=== PATIENT | female | born 1990 | race Caucasian/White ===

== ENCOUNTER 2016-10-07 23:56 | Emergency (ER) | payer SELFPAY ==
[~2016-10-07] VITALS: Ht 154.9 cm; Wt 63.2 kg
[2016-10-08 00:03] VITALS: Ht 154.9 cm; Wt 63.2 kg
[2016-10-08] MEDS ORDERED: KETOROLAC TROMETHAMINE 30 MG/ML VIAL IV STA (00:30)
--- NOTE | 2016-10-08 00:40 | EMERGENCY ROOM VISIT NOTE ---
History Report prepared by Madhuri: Francisco Javier Bateman Under the Supervision of: Dr. Nasrin Singleton D.O. First contact with patient: 00:14 Chief Complaint: ILLNESS Stated Complaint: HEADACHE,FEVER,SORETHROAT History of Present Illness The patient is a 26 year old female who presents to the Emergency Room with complaints of persistent upper respiratory symptoms since yesterday. The patient has had fevers, headache, sore throat, and coughing. The cough produces mucous. The patient had two Tylenol at 2130 tonight without relief of her symptoms. She denies abdominal pain. She was not vaccinated for influenza this year. The patient does not have any sick contacts. She denies any major health problems. LNMP was three days ago. She does not smoke. She follows up with Dr. Wong. Source of History: patient Onset: yesterday Position: other (upper respiratory) Quality: other (URI symptoms) Timing: other (persistent) Associated Symptoms: + cough, + fevers, + headache, + sorethroat, No abdominal pain Review of Systems See HPI for pertinent positives & negatives. A total of 10 systems reviewed and were otherwise negative. Past Medical & Surgical Medical Problems: (1) No known health problems Family History No pertinent family history Social History Smoking Status: Never Smoker Housing Status: lives with family Occupation Status: employed Current/Historical Medications Scheduled Oseltamivir (Tamiflu), 75 MG PO BID Allergies Coded Allergies: No Known Allergies (Unverified , 10/08/16) Physical Exam Vital Signs Date Time Temp Pulse Resp B/P Pulse Ox O2 Delivery O2 Flow Rate FiO2 10/08/16 02:30 36.9 78 20 93/63 97 10/08/16 01:53 37.3 84 18 99/53 96 Room Air 10/08/16 00:03 39.3 108 18 104/73 96 Room Air Physical Exam HEENT: Head - normocephalic and atraumatic Pupils are equal, round, and reactive to light. Extraocular eye muscles are intact, and sclera are anicteric. Nose - moist nasal mucosa without discharge. Mouth - moist buccal mucosa. Oropharynx is nonerythematous and there is no tonsillar exudate or edema noted. Neck: Supple; no JVD, nuchal rigidity, cervical lymphadenopathy. Heart: Tachycardic regular rhythm. There is a normal S1 and S2 with no murmurs , clicks, or gallops appreciated. Lungs: Rhonchi right lung base. Abdomen: Soft, completely nontender, nondistended, with good bowel sounds. There are no palpable pulsatile masses or hepatosplenomegaly. There is no guarding, rigidity, or rebound noted. Extremities: No evidence of cyanosis, clubbing, or edema. There are easily palpable peripheral pulses. Skin: warm with good turgor and no rashes. Diaphoretic. Medical Decision & Procedures ER Provider Diagnostic Interpretation: X-ray results as stated below per interpretation by me. CHEST TWO VIEWS: Severe scoliosis. No pulmonary pathology. Laboratory Results 10/08/16 00:51 Red Blood Count 4.10, Mean Corpuscular Volume 90.5, Mean Corpuscular Hemoglobin 31.7, Mean Corpuscular Hemoglobin Concent 35.0, Mean Platelet Volume 9.7, Neutrophils (%) (Auto) 74.6, Lymphocytes (%) (Auto) 14.1, Monocytes (%) (Auto) 10.9, Eosinophils (%) (Auto) 0.0, Basophils (%) (Auto) 0.2, Neutrophils # (Auto ) 3.96, Lymphocytes # (Auto) 0.75, Monocytes # (Auto) 0.58, Eosinophils # (Auto ) 0.00, Basophils # (Auto) 0.01 10/08/16 00:51 Test 10/08/16 00:51 10/08/16 01:05 White Blood Count 5.31 K/uL (4.8-10.8) Red Blood Count 4.10 M/uL (4.2-5.4) Hemoglobin 13.0 g/dL (12.0-16.0) Hematocrit 37.1 % (37-47) Mean Corpuscular Volume 90.5 fL (80-100) Mean Corpuscular Hemoglobin 31.7 pg (25-34) Mean Corpuscular Hemoglobin Concent 35.0 g/dl (32-36) Platelet Count 166 K/uL (130-400) Mean Platelet Volume 9.7 fL (7.4-10.4) Neutrophils (%) (Auto) 74.6 % Lymphocytes (%) (Auto) 14.1 % Monocytes (%) (Auto) 10.9 % Eosinophils (%) (Auto) 0.0 % Basophils (%) (Auto) 0.2 % Neutrophils # (Auto) 3.96 K/uL (1.4-6.5) Lymphocytes # (Auto) 0.75 K/uL (1.2-3.4) Monocytes # (Auto) 0.58 K/uL (0.11-0.59) Eosinophils # (Auto) 0.00 K/uL (0-0.5) Basophils # (Auto) 0.01 K/uL (0-0.2) RDW Standard Deviation 44.2 fL (36.4-46.3) RDW Coefficient of Variation 13.3 % (11.5-14.5) Immature Granulocyte % (Auto) 0.2 % Immature Granulocyte # (Auto) 0.01 K/uL (0.00-0.02) Anion Gap 7.0 mmol/L (3-11) Est Creatinine Clear Calc Drug Dose 77.1 ml/min Estimated GFR () 96.5 Estimated GFR (Non- 83.2 BUN/Creatinine Ratio 22.1 (10-20) Calcium Level 8.0 mg/dl (8.5-10.1) Monoscreen NEG (NEG) Influenza Type A Antigen Neg for Influ A (NEG) Influenza Type B Antigen POS for Influ B (NEG) Laboratory results per my review. Medications Administered Medications (Trade) Dose Ordered Sig/Yi Route Start Time Stop Time Status Last Admin Dose Admin Ketorolac Tromethamine 30 mg 30 mg NOW STAT IV 10/08/16 00:30 10/08/16 00:32 DC 10/08/16 01:06 30 MG Sodium Chloride (Nss 1000ml) 1,000 ml @ 999 mls/hr Q1H1M STAT IV 10/08/16 01:36 10/08/16 02:36 DC 10/08/16 01:53 999 MLS/HR Oseltamivir Phosphate (Tamiflu Cap) 75 mg NOW STAT PO 10/08/16 02:13 10/08/16 02:14 DC 10/08/16 02:26 75 MG Procedure Medications administered include Toradol IV, NSS IV, Tamiflu PO. ED Course 0025: Past medical records reviewed. The patient was evaluated in room A9b. A complete history and physical exam was performed. An IV lock was initiated and labs are drones above. Her throat was swabbed for the strep and was negative. Her nose was swab for influenza and was positive for influenza B. 0030: Toradol 30 mg IV. 0136: NSS 1000 ml @ 999 mls/hr. 0205: Updated the patient. Discussed the discharge instructions with her. She verbalized understanding and agreement. The patient is ready for discharge. 0213: Tamiflu 75 mg PO. Medical Decision The patient is a 26 year old fmale who presents to the ED with upper respiratory symptoms. Differential diagnosis includes influenza, strep, mono, pharyngitis, viral illness, pneumonia. Laboratory interpretation: [place] negative, influenza B positive, BUN 21, creatinine 0.9, glucose 134, no leukocytosis, stable H&H. This is a 26-year-old female patient who presents emergency Department upper respiration symptoms, fever, headache and body aches. The patient had not received the flu vaccine issue. Testing revealed influenza B-positive. The patient was told to quarantine herself. She will take Tamiflu for the next 5 days. Impression Primary Impression: Influenza B Scribe Attestation The scribe's documentation has been prepared under my direction and personally reviewed by me in its entirety. I confirm that the note above accurately reflects all work, treatment, procedures, and medical decision making performed by me. Departure Information Dispostion Home / Self-Care Prescriptions Oseltamivir (Tamiflu) 75 Mg Cap 75 MG PO BID, #10 CAP Prov: Nasrin Singleton D.O. 10/08/16 Referrals No Doctor, Assigned (PCP) Forms HOME CARE DOCUMENTATION FORM, IMPORTANT VISIT INFORMATION, WORK / SCHOOL INSTRUCTIONS Patient Instructions ED Flu, My [facility] Additional Instructions Rest. Take Tamiflu - every 12 hours. Take plenty of clear liquids Motrin - 600mg every 6 hours with food for pain Do not leave your house for 48 hours
[2016-10-08 01:03] LABS: HEMATOCRIT 37.1 % (37-47); MEAN CELL VOLUME 90.5 fL (80-100); MEAN CORPUSCULAR HEMOGLOBIN 31.7 pg (25-34); MEAN PLATELET VOLUME 9.7 fL (7.4-10.4); PLATELET COUNT 166 K/uL (130-400); WHITE BLOOD COUNT 5.31 K/uL (4.8-10.8)
[2016-10-08 01:25] LABS: BASO % 0.2 %; BASO ABS # 0.01 K/uL (0-0.2); COMPLETE YES; IG% 0.2 %; LYMPH % 14.1 %; LYMPH ABS # 0.75 K/uL (1.2-3.4); MONO % 10.9 %; NEUT % 74.6 %
[2016-10-08 01:29] LABS: POTASSIUM 3.7 mmol/L (3.5-5.1)
[2016-10-08 01:34] LABS: BUN/CREATININE RATIO 22.1 (10-20); CREATININE 0.95 mg/dl (0.60-1.20)
[2016-10-08] MEDS ORDERED: SODIUM CHLORIDE 0.9% 1000ML 1,000 ML IV STA (01:36)
[2016-10-08] MEDS ORDERED: OSELTAMIVIR PHOSPHATE 75 MG CAP PO STA (02:13)
[2016-10-08] MEDS ORDERED: OSEL75CA12 PO (02:15)
[2016-10-08 02:30] VITALS: BP 93/63; PULSE 78; TEMP 36.9; O2SAT 97
--- NOTE | 2016-10-08 06:17 | DIAGNOSTIC IMAGING REPORT ---
CHEST 2 VIEWS ROUTINE CLINICAL HISTORY: Fever and cough COMPARISON STUDY: No previous studies for comparison. FINDINGS: The heart is normal in size. There is no failure. There is no focal pulmonary consolidation. There is minimal blunting of the left posterior costophrenic angle. A trace pleural effusion cannot be excluded.[ There is a thoracolumbar scoliosis. IMPRESSION: Equivocal trace left pleural effusion. No evidence of focal pulmonary consolidation. Electronically signed by: Suleiman Abbott M.D. 10/08/2016 6:15 AM Dictated Date/Time: 10/08/2016 6:14 AM
== END 2016-10-08 02:30 | disposition home or self-care (01) ==
LOC: C.EDB 23:57 → C.EDA 10-08 02:30
DX: J11.1 Influenza due to unidentified influenza virus with other respiratory manifestations (principal)

== ENCOUNTER 2023-02-17 07:45 | Inpatient (IN) ==
[2023-02-17] MEDS ORDERED: OXYTOCIN 30 UNITS/500 ML BAG IV PRN (08:28)
[2023-02-17] MEDS ORDERED: LIDOCAINE 1% LOCAL 20 ML VIAL INFIL PRN (08:28)
[2023-02-17] MEDS ORDERED: PENICILLIN G POTASSIUM 6 MU in DEXTROSE 5% 250 ML IV STA (08:37)
--- NOTE | 2023-02-17 08:51 | History & Physical Report ---
Date of Service February 17, 2023 Assessment & Plan (1) 40 weeks gestation of : Plan: Admit, routine labs Discussed plan for induction of labor Misoprostol 25 mcg grams sublingually every 4 hours Epidural if patient request Anticipate spontaneous vaginal delivery (2) Positive GBS test: Plan: Start IV penicillin G when in active labor, or prior to AROM or if patient has SROM (3) Elevated BP without diagnosis of hypertension: Plan: Patient had 2 diastolic blood pressures of 90 or higher, no severe range blood pressures PIH labs ordered If patient has elevated blood pressures 4 hours apart will at least meet the criteria for gestational hypertension Admission and Anticipated Discharge Date Admission Date: February 17, 2023 History of Present Illness Chief Complaint: IOL for post dates Primary Care Provider: NO PCP Patient is a pleasant 32-year-old G1, P0 at 40 weeks and 5 days is joined in the room with father the baby and [id number]. She denies contractions, leaking of fluid or vaginal bleeding. Notes good movement. Denies currently having a headache but has had headaches in , denies blurry vision, right upper quadrant epigastric pain. Otherwise feeling well has been complicated by GBS positive, and scoliosis Allergies Allergy/AdvReac Type Severity Reaction Status Date / Time No Known Allergies Allergy Unverified 02/17/23 08:08 Home Medications Medication Instructions Recorded Confirmed Type vits no.124-ferrous fum 1 tab PO DAILY 02/17/23 02/17/23 History 27 mg iron-folic acid 800 mcg tablet ( Vitamin) Patient History Medical History HPV (human papilloma virus) infection ASCUS Scoliosis Surgical History [place] teeth extracted Family History Other Hypertension Social History Smoking Status: Never smoker Hx Alcohol Use: No Hx Substance Use: No Preferred Language: Cook Islander Communication Ability: Effective Director 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 Quality Required: No Beliefs That Will Affect Care: None marital status: marital status details: Katie Deshpande (TJ) Current Living Situation: Spouse 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 Other Information That Helps Us Care for You: No Feels Safe at Home: Yes Safety Concerns: Feels Safe At This Time Diet: regular Assistive Devices: None OB History Primigravida POCKETED [employer] History See record History of HPV Review of Systems All systems reviewed & are unremarkable except as noted in HPI & below Physical Exam Constitutional: WD/WN, vitals as above Respiratory: normal respiratory effort, lungs clear to auscultation Cardiovascular: RRR, no murmur, no edema Gastrointestinal (Abdomen): normal bowel sounds, soft, nontender, no hepatosplenomegaly Arturo's: 3500 g, cephalic Genitourinary: External genitalia: Normal Vagina: Normal Cervical exam: 0/0/-3 Results & Data Vital Signs (Past 12 Hours) Vital Signs Temp Pulse Resp BP 02/17/23 08:09 37.0 C 18 02/17/23 08:33 77 124/87 02/17/23 08:19 85 129/90 02/17/23 08:03 74 131/94 Monitoring External Monitor heart tracing: Baseline 130, moderate variability, positive accelerations no decelerations, category 1 tracing Tocodynamometer Tocometer: Irritability
[2023-02-17 09:12] LABS: Hematocrit (blood only) 33.8 % (37.0-47.0); Hemoglobin 11.9 g/dl (12.0-16.0); Mean Corpuscular Hgb Conc 35.2 g/dL (32.0-36.0); Mean Corpuscular Volume 90.9 fL (80.0-100.0); Mean Platelet Volume 11.3 fL (9.4-12.4); Platelet Count 156 K/uL (130-400); RDW Coefficient of Variation 12.8 % (11.5-14.5); RDW Standard Deviation 42.1 fL (36.4-46.3); Red Blood Count 3.72 M/uL (4.20-5.40); White Blood Count 9.92 K/ul (4.8-10.8)
[2023-02-17 09:15] LABS: Albumin Globulin Ratio 1.2 (0.9-2); Albumin Level 3.2 gm/dl (3.4-5.0); BUN Creatinine Ratio 30.6 (10-20); Bilirubin,Total 0.3 mg/dl (0.2-1.0); Calcium 8.3 mg/dl (8.6-10.3); Est GFR (African American) 139.3 ml/min; Est GFR (Non-African American) 120.2 ml/min; Globulin 2.7 gm/dl (2.5-4.0); Total Protein 5.9 gm/dl (6.0-8.3)
[2023-02-17] MEDS: miSOPROStoL 25 MCG TAB SL SCH ×4 (09:21→19:26)
[2023-02-17 09:53] LABS: Creatinine Urine Random 47.9 mg/dl; Protein Creatinine Ratio Urine 0.1 (0-0.2); Total Protein Urine Random 6.6 mg/dl (0-11.9)
--- NOTE | 2023-02-17 15:29 | Obstetrical Progress Note ---
Date of Service February 17, 2023 Assessment & Plan (1) Gestational hypertension affecting first : Admission and Anticipated Discharge Date Admission Date: February 17, 2023 Subjective Patient has had multiple elevated blood pressures, at least 4 hours apart meeting the criteria for gestational hypertension at term Protein creatinine ratio 0.1. Results & Data Vital Signs (Past 12 Hours) Vital Signs Temp Pulse Resp BP 02/17/23 08:09 37.0 C 18 02/17/23 14:33 36.4 C L 64 18 134/93 02/17/23 11:30 20 02/17/23 11:30 36.7 C 20 02/17/23 11:31 57 L 150/89 H 02/17/23 08:33 77 18 124/87 02/17/23 08:19 85 18 129/90 02/17/23 08:03 74 131/94 Laboratory Results Laboratory Results WBC 9.92 K/ul (4.8-10.8) 02/17/23 08:35 RBC 3.72 M/uL (4.20-5.40) L 02/17/23 08:35 Hgb 11.9 g/dl (12.0-16.0) L 02/17/23 08:35 Hct 33.8 % (37.0-47.0) L 02/17/23 08:35 MCV 90.9 fL (80.0-100.0) 02/17/23 08:35 MCH 32.0 pg (25.0-34.0) 02/17/23 08:35 MCHC 35.2 g/dL (32.0-36.0) 02/17/23 08:35 RDW Std Deviation 42.1 fL (36.4-46.3) 02/17/23 08:35 RDW Coeff of [place] 12.8 % (11.5-14.5) 02/17/23 08:35 Plt Count 156 K/uL (130-400) 02/17/23 08:35 MPV 11.3 fL (9.4-12.4) 02/17/23 08:35 Sodium 135 mmol/L (136-145) L 02/17/23 08:35 Potassium 4.0 mmol/L (3.5-5.1) 02/17/23 08:35 Chloride 108 mmol/L (98-107) H 02/17/23 08:35 Carbon Dioxide 21 mmol/L (21-32) 02/17/23 08:35 Anion Gap 6 (3-11) 02/17/23 08:35 BUN 19 mg/dl (6-23) 02/17/23 08:35 Creatinine 0.62 mg/dl (0.6-1.2) 02/17/23 08:35 Est Cr Clr Drug Dosing 119.0 ml/min 02/17/23 08:35 Est GFR ( Amer) 139.3 ml/min 02/17/23 08:35 Est GFR (Non-Af Amer) 120.2 ml/min 02/17/23 08:35 BUN/Creatinine Ratio 30.6 (10-20) H 02/17/23 08:35 Glucose 77 mg/dl (70-99(Fasting)) 02/17/23 08:35 Calcium 8.3 mg/dl (8.6-10.3) L 02/17/23 08:35 Total Bilirubin 0.3 mg/dl (0.2-1.0) 02/17/23 08:35 AST 18 U/L (13-39) 02/17/23 08:35 ALT 15 U/L (7-52) 02/17/23 08:35 Alkaline Phosphatase 144 U/L (34-104) H 02/17/23 08:35 Total Protein 5.9 gm/dl (6.0-8.3) L 02/17/23 08:35 Albumin 3.2 gm/dl (3.4-5.0) L 02/17/23 08:35 Globulin 2.7 gm/dl (2.5-4.0) 02/17/23 08:35 Albumin/Globulin Ratio 1.2 (0.9-2) 02/17/23 08:35 Ur Random Creatinine 47.9 mg/dl 02/17/23 08:44 U Random Total Protein 6.6 mg/dl (0-11.9) 02/17/23 08:44 Protein/Creatinin Ratio 0.1 (0-0.2) 02/17/23 08:44
[2023-02-17] MEDS: PRENATAL VITAMIN 1 TAB PO SCH (16:54)
--- NOTE | 2023-02-17 18:26 | Obstetrical Progress Note ---
Date of Service February 17, 2023 Assessment & Plan (1) 40 weeks gestation of : Plan: Patient is status post 1 dose of misoprostol 25 mcg sublingual, has been akila too much throughout the day to give a second dose Plan to give a second dose when contractions spaced out Epidural if patient request Anticipate spontaneous vaginal delivery (2) Positive GBS test: Plan: Plan to start IV penicillin G when in active labor (3) Gestational hypertension affecting first : Plan: PIH labs within normal limits, no severe range blood pressures Admission and Anticipated Discharge Date Admission Date: February 17, 2023 Subjective Patient has been up walking, contractions are more painful than earlier No other complaints at this time Physical Exam Genitourinary: heart tracing: Has been category 1 throughout the day Tocometer: Contractions every 2 to 4 minutes Cervix: 0/60/-3 Results & Data Vital Signs (Past 12 Hours) Vital Signs Temp Pulse Resp BP 02/17/23 08:09 37.0 C 18 02/17/23 14:33 36.4 C L 64 18 134/93 02/17/23 11:30 20 02/17/23 11:30 36.7 C 20 02/17/23 11:31 57 L 150/89 H 02/17/23 08:33 77 18 124/87 02/17/23 08:19 85 18 129/90 02/17/23 08:03 74 131/94 Laboratory Results Laboratory Results WBC 9.92 K/ul (4.8-10.8) 02/17/23 08:35 RBC 3.72 M/uL (4.20-5.40) L 02/17/23 08:35 Hgb 11.9 g/dl (12.0-16.0) L 02/17/23 08:35 Hct 33.8 % (37.0-47.0) L 02/17/23 08:35 MCV 90.9 fL (80.0-100.0) 02/17/23 08:35 MCH 32.0 pg (25.0-34.0) 02/17/23 08:35 MCHC 35.2 g/dL (32.0-36.0) 02/17/23 08:35 RDW Std Deviation 42.1 fL (36.4-46.3) 02/17/23 08:35 RDW Coeff of [place] 12.8 % (11.5-14.5) 02/17/23 08:35 Plt Count 156 K/uL (130-400) 02/17/23 08:35 MPV 11.3 fL (9.4-12.4) 02/17/23 08:35 Sodium 135 mmol/L (136-145) L 02/17/23 08:35 Potassium 4.0 mmol/L (3.5-5.1) 02/17/23 08:35 Chloride 108 mmol/L (98-107) H 02/17/23 08:35 Carbon Dioxide 21 mmol/L (21-32) 02/17/23 08:35 Anion Gap 6 (3-11) 02/17/23 08:35 BUN 19 mg/dl (6-23) 02/17/23 08:35 Creatinine 0.62 mg/dl (0.6-1.2) 02/17/23 08:35 Est Cr Clr Drug Dosing 119.0 ml/min 02/17/23 08:35 Est GFR ( Amer) 139.3 ml/min 02/17/23 08:35 Est GFR (Non-Af Amer) 120.2 ml/min 02/17/23 08:35 BUN/Creatinine Ratio 30.6 (10-20) H 02/17/23 08:35 Glucose 77 mg/dl (70-99(Fasting)) 02/17/23 08:35 Calcium 8.3 mg/dl (8.6-10.3) L 02/17/23 08:35 Total Bilirubin 0.3 mg/dl (0.2-1.0) 02/17/23 08:35 AST 18 U/L (13-39) 02/17/23 08:35 ALT 15 U/L (7-52) 02/17/23 08:35 Alkaline Phosphatase 144 U/L (34-104) H 02/17/23 08:35 Total Protein 5.9 gm/dl (6.0-8.3) L 02/17/23 08:35 Albumin 3.2 gm/dl (3.4-5.0) L 02/17/23 08:35 Globulin 2.7 gm/dl (2.5-4.0) 02/17/23 08:35 Albumin/Globulin Ratio 1.2 (0.9-2) 02/17/23 08:35 Ur Random Creatinine 47.9 mg/dl 02/17/23 08:44 U Random Total Protein 6.6 mg/dl (0-11.9) 02/17/23 08:44 Protein/Creatinin Ratio 0.1 (0-0.2) 02/17/23 08:44
[2023-02-18] MEDS: miSOPROStoL 25 MCG TAB SL SCH ×5 (00:52→14:11)
[2023-02-18] MEDS ORDERED: ACETAMINOPHEN 325 MG TAB PO ONE (05:11)
--- NOTE | 2023-02-18 06:34 | Obstetrical Progress Note ---
Date of Service February 18, 2023 Assessment & Plan (1) 40 weeks gestation of : Plan: Patient is status post 4 doses of sublingual misoprostol IV Stadol now Plan to start IV Pitocin Epidural if patient request Anticipate spontaneous vaginal delivery (2) Positive GBS test: Plan: Plan to start IV penicillin G (3) Gestational hypertension affecting first : Plan: PIH labs within normal limits, no severe range blood pressures Admission and Anticipated Discharge Date Admission Date: February 17, 2023 Subjective Contractions are more painful, patient is starting to 3 through them. Would l lisbeth IV pain medication Has had some leaking of fluid Physical Exam Genitourinary: heart tracing: Baseline 140, moderate variability, positive accelerations, no decelerations, category 1 tracing Tocometer: Contractions every 1 to 6 minutes Cervix: 2/80/-2, noted no membranes, appears grossly ruptured Results & Data Vital Signs (Past 12 Hours) Vital Signs Temp Pulse Resp BP 02/17/23 19:03 36.6 C 18 02/18/23 03:09 36.7 C 57 L 18 131/86 02/18/23 00:30 36.6 C 56 L 18 138/88 02/17/23 19:06 62 135/86
[2023-02-18] MEDS ORDERED: BUTORPHANOL TARTRATE 1 MG/ML VIAL IV PRN (06:35)
[2023-02-18] MEDS: LACTATED RINGER'S 1,000 ML IV PRN ×2 (06:59→12:00)
[2023-02-18] MEDS ORDERED: OXYTOCIN 30 UNITS/500 ML BAG IV PRN ×2 (09:07→20:05)
[2023-02-18] MEDS: PRENATAL VITAMIN 1 TAB PO SCH (09:08)
[2023-02-18] MEDS ORDERED: fentaNYL citrate PF 100 MCG/2 ML VIAL ONE (09:58)
[2023-02-18] MEDS ORDERED: fentaNYL 2MCG/ML ROPIVACAINE 1.25MG/ML 100 ML BAG EPI ONE (09:59)
[2023-02-18] MEDS ORDERED: SODIUM CHLORIDE 0.9% PF INJ 10 ML VIAL ONE (09:59)
[2023-02-18] MEDS ORDERED: ePHEDrine sulfate 50 MG/ML AMP ONE (09:59)
[2023-02-18] MEDS ORDERED: BUPIVACAINE 0.25% PF 30 ML VIAL ONE (09:59)
[2023-02-18] MEDS ORDERED: LIDOCAINE 2%/EPINEPHRINE 1:200,000 20 ML PF ONE (09:59)
--- NOTE | 2023-02-18 10:02 | Anesthesiology Consultation ---
Date of Service February 18, 2023 Assessment & Plan ASA ASA2 Proposed Anesthesia Anesthesia Type: Labor Epidural Risk / Benefits Reviewed With: PT / POA / Parent / Guardian, Accepts Plan and Informed Consent Obtained History Height/Weight Height: 5 ft 1 in Weight: 71.668 kg Allergies Allergy/AdvReac Type Severity Reaction Status Date / Time No Known Allergies Allergy Unverified 02/17/23 09:25 Medications Home Medications Medication Instructions Recorded Confirmed Last Taken vits no.124-ferrous fum 1 tab PO DAILY 02/17/23 02/17/23 02/17/23 07:00 27 mg iron-folic acid 800 mcg tablet ( Vitamin) Active Medications Generic Name Dose Route Start Last Admin Trade Name Freq PRN Reason Stop Dose Admin Butorphanol Tartrate 1 mg 02/18/23 06:35 02/18/23 06:59 Butorphanol Tartrate 1 Mg/Ml Vial IV 03/20/23 06:34 1 mg Q2R PRN Administration Pain Lactated Ringer's 1,000 mls @ 125 mls/hr 02/17/23 08:28 02/18/23 06:59 Lr IV 02/19/23 08:27 125 mls/hr .Q8H PRN Administration L&D Protocol Protocol Oxytocin 30 units in 500 mls @ 2 mls/hr 02/18/23 09:07 02/18/23 09:23 Pitocin IV 02/20/23 09:06 0.12 units/hr .Q24H PRN 2 mls/hr Labor Induction/Augmentation Administration Protocol 0.12 UNITS/HR Misoprostol 25 mcg 02/17/23 09:00 02/18/23 09:08 Misoprostol 25 Mcg Tab SL 03/19/23 08:59 Not Given Q4H JJ Prenat Multivit/[place]/Iron/Folic Ac 1 tab 02/17/23 09:00 02/18/23 09:08 Vitamin 1 Tab PO 03/19/23 08:59 Not Given DAILY JJ Past Medical History Medical History Elevated BP without diagnosis of hypertension HPV (human papilloma virus) infection ASCUS Scoliosis Exercise / Class Metabolic Activity II 4-5 Yardwork/Stairs/Walk up hill Past Family History Family History Other Hypertension Past Surgical History Surgical History [place] teeth extracted Past Anesthesia History No Hx of Anesthesia Complications and No Family Hx of Anesthesia Complications History of PONV No Hx of PONV and No Hx of Motion Sickness Social History Smoking Status: Never smoker Hx Alcohol Use: No Hx Substance Use: No Review of Systems denies fever/cough/ colds/ chest pain/ SOB/ RYDER denies RYDER Physical Exam Vital Signs Last Vital Signs Temp 36.7 C 02/18/23 09:25 Pulse 80 02/18/23 10:34 Resp 18 02/18/23 09:25 BP 123/81 02/18/23 10:34 Pulse Ox 99 02/18/23 10:31 ENMT Mouth: no TMJ abnormality and no dentition abnormality Thyromental Distance: > or= 3.5 Finger Breadths Mallampati Class: II Neck neck extension not limited Respiratory normal respiratory effort; no respiratory distress Auscultation: lungs clear to auscultation bilaterally Cardiovascular Rate/Rhythm: regular rate and regular rhythm Neurologic moves all extremities Psychiatric Orientation: alert and oriented x 3 Testing Laboratory Results 02/17/23 08:35 02/17/23 08:35
[2023-02-18] MEDS ORDERED: SODIUM CHLORIDE 0.9% PF INJ 10 ML VIAL EPI PRN (10:03)
[2023-02-18] MEDS ORDERED: fentaNYL 2MCG/ML ROPIVACAINE 1.25MG/ML 100 ML BAG EPI PRN (10:03)
[2023-02-18] MEDS ORDERED: SODIUM CHLORIDE 0.9% PF INJ 10 ML VIAL EPI STA (10:03)
[2023-02-18] MEDS ORDERED: fentaNYL citrate PF 100 MCG/2 ML VIAL EPI STA (10:03)
[2023-02-18] MEDS ORDERED: LIDOCAINE 2% MPF LOCAL 5 ML VIAL EPI PRN (10:03)
[2023-02-18] MEDS ORDERED: ROPIVACAINE 0.5% PF 5 MG/ML 20 ML VIAL EPI PRN (10:03)
[2023-02-18] MEDS ORDERED: ONDANSETRON INJ 2 MG/ML 2 ML VIAL IV PRN (10:03)
[2023-02-18] MEDS ORDERED: BUPIVACAINE 0.25% PF 30 ML VIAL EPI PRN (10:03)
[2023-02-18] MEDS ORDERED: NALOXONE HCL 0.4 MG/1 ML VIAL/CARP IV PRN (10:03)
[2023-02-18] MEDS ORDERED: fentaNYL citrate PF 100 MCG/2 ML VIAL EPI PRN (10:03)
[2023-02-18] MEDS ORDERED: BUPIVACAINE 0.25% PF 30 ML VIAL EPI STA (10:03)
[2023-02-18] MEDS ORDERED: diphenhydrAMINE 50 MG/ML VIAL IV PRN (10:03)
[2023-02-18] MEDS ORDERED: ePHEDrine sulfate 50 MG/ML AMP IV PRN (10:03)
[2023-02-18] MEDS ORDERED: NALBUPHINE HCL INJ 10 MG/ML AMP IV PRN (10:03)
[2023-02-18] MEDS ORDERED: NALOXONE HCL 1 MG in SODIUM CHLORIDE 0.9% 1000ML 1,000 ML IV PRN (10:03)
[2023-02-18] MEDS ORDERED: LIDOCAINE 2%/EPINEPHRINE 1:200,000 20 ML PF EPI STA (10:03)
[2023-02-18] MEDS: PENICILLIN G POTASSIUM 3 MU in DEXTROSE 5% 100 ML IV PRN ×3 (11:17→19:30)
[2023-02-18] MEDS ORDERED: BENZOCAINE 20% SPRY 85 APPLN/85 GM CAN EXT PRN (20:05)
[2023-02-18] MEDS ORDERED: ACETAMINOPHEN 325 MG TAB PO PRN (20:05)
[2023-02-18] MEDS ORDERED: METHYLERGONOVINE MALEATE 0.2 MG/ML AMP IM ONE (20:05)
[2023-02-18] MEDS ORDERED: HYDROCORTISONE ACETATE 25 MG SUPP PR PRN (20:05)
[2023-02-18] MEDS ORDERED: bisacodyL 10 MG SUPP PR PRN (20:05)
[2023-02-18] MEDS ORDERED: DIPHTHERIA/TETANUS/PERTUSSIS Vaccine (Tdap, Age 7+yrs) 0.5mL SYR/VL IM ONE (20:05)
[2023-02-18 20:09] LABS: Base Excess Cord Arterial Bld -8.1 mEq/L (-9-1.8); CO2 Cord Arterial Blood 45 mmHg (39.1-73.5); HCO3 Cord Arterial Blood 19 mmol/L (19.7-28.5); Oxygen Sat Cord Arterial Blood < 60.0 % (<60); PO2 Cord Arterial Blood 22 mmHg (4.1-31.7); pH Cord Arterial Blood 7.24 (7.1-7.38)
--- NOTE | 2023-02-18 20:15 | Delivery Summary ---
Vaginal Delivery Summary Date of Service February 18, 2023 Vaginal Delivery Summary DELIVERY NOTE Patient delivered a live in left occiput anterior presentation. was delivered and placed on mother's abdomen. Delayed cord clamping was performed. Cord blood is obtained Cord gasses are obtained Meconium is absent Placenta is spontaneously delivered. Placenta appears grossly normal and has 3 vessel cord Inspection of the perineum showed a second-degree midline laceration. Laceration is repaired in layers with 2-0 Vicryl in layers Rectal exam post repair showed good sphincter tone no sutures palpated in the rectum. Estimated blood loss is 450 cc per Infants weight and scores are in the pediatric record Mother and baby are stable in in the recovery
--- NOTE | 2023-02-18 21:13 | Anesthesia Procedure Note ---
Date of Service February 18, 2023 Anesthesia Post Epidural Note Vital Signs Vital Signs: Temp Pulse Resp BP Pulse Ox 37.0 C 73 18 152/82 H 96 02/18/23 18:57 02/18/23 21:06 02/18/23 20:50 02/18/23 21:06 02/18/23 19:57 Pain Intensity Abdomen: Pain Intensity: 6 Notes Mental Status: alert / awake / arousable Nausea / Vomiting: adequately controlled Pain: adequately controlled Airway Patency, RR, SpO2: stable & adequate BP & HR: stable & adequate Hydration State: stable & adequate Neuraxial Anesthesia: was administered and sensory block is resolving Anesthetic Complications: no major complications apparent and Pt Satisfied with anesthetic care Epidural: Removed without complications and With tip intact
[2023-02-18] MEDS: IBUPROFEN 600 MG TAB PO PRN (23:37)
[2023-02-19] MEDS ORDERED: BENZOCAINE 20% SPRY 85 APPLN/85 GM CAN EXT ONE (00:57)
[2023-02-19] MEDS: IBUPROFEN 600 MG TAB PO PRN ×4 (03:51→17:32)
[2023-02-19] MEDS: DOCUSATE SODIUM 100 MG CAP PO SCH ×2 (07:29→20:32)
[2023-02-19] MEDS: PRENATAL VITAMIN 1 TAB PO SCH (07:29)
[2023-02-19] MEDS ORDERED: PRENATAL VITAMIN 1 TAB PO SCH (08:00)
[2023-02-19 08:15] LABS: Hematocrit (blood only) 31.1 % (37.0-47.0); Mean Corpuscular Hemoglobin 32.3 pg (25.0-34.0); Mean Corpuscular Hgb Conc 35.4 g/dL (32.0-36.0); Mean Corpuscular Volume 91.2 fL (80.0-100.0); Mean Platelet Volume 11.1 fL (9.4-12.4); Platelet Count 119 K/uL (130-400); RDW Coefficient of Variation 12.9 % (11.5-14.5); RDW Standard Deviation 42.3 fL (36.4-46.3); Red Blood Count 3.41 M/uL (4.20-5.40); White Blood Count 16.41 K/ul (4.8-10.8)
[2023-02-19 08:34] LABS: Albumin Level 2.6 gm/dl (3.4-5.0); BUN Creatinine Ratio 24.2 (10-20); Bilirubin,Total 0.4 mg/dl (0.2-1.0); Est GFR (African American) 139.3 ml/min; Est GFR (Non-African American) 120.2 ml/min; Globulin 2.5 gm/dl (2.5-4.0); Potassium 4.4 mmol/L (3.5-5.1); Total Protein 5.1 gm/dl (6.0-8.3)
--- NOTE | 2023-02-19 09:05 | Obstetrical Progress Note ---
Date of Service February 19, 2023 Assessment & Plan (1) Normal course: PPD #1 pt dong well continue day #1 care anticipate disch tomorrow Results & Data Vital Signs (Past 12 Hours) Vital Signs Temp Pulse Pulse Resp BP BP Pulse Ox 02/19/23 08:30 131/86 02/19/23 07:36 36.4 C L 59 L 16 151/91 H 100 02/19/23 03:40 36.7 C 68 16 118/78 97 02/18/23 23:20 36.8 C 81 16 129/89 96 02/18/23 22:05 37.1 C 20 02/18/23 21:35 20 02/18/23 21:05 18 02/18/23 22:20 92 H 142/83 H 02/18/23 22:06 89 150/83 H 02/18/23 21:51 76 137/83 02/18/23 21:36 86 147/73 H 02/18/23 21:20 71 154/87 H 02/18/23 21:06 73 152/82 H O2 Del Method 02/19/23 08:30 02/19/23 07:36 Room Air 02/19/23 03:40 Room Air 02/18/23 23:20 Room Air 02/18/23 22:05 02/18/23 21:35 02/18/23 21:05 02/18/23 22:20 02/18/23 22:06 02/18/23 21:51 02/18/23 21:36 02/18/23 21:20 02/18/23 21:06
[2023-02-19] MEDS ORDERED: bisacodyL 5 MG TABEC PO SCH (20:00)
[2023-02-20] MEDS: IBUPROFEN 600 MG TAB PO PRN (04:58)
[2023-02-20 06:23] LABS: Hematocrit (blood only) 29.5 % (37.0-47.0); Hemoglobin 10.4 g/dl (12.0-16.0)
[2023-02-20] MEDS: DOCUSATE SODIUM 100 MG CAP PO SCH (08:32)
[2023-02-20] MEDS: PRENATAL VITAMIN 1 TAB PO SCH (08:32)
--- NOTE | 2023-02-20 10:05 | Obstetrical Progress Note ---
Date of Service February 20, 2023 Subjective Ambulation: ambulating normally Voiding: no voiding problems Passing Gas:: Yes Diet Tolerance:: regular diet Lochia:: Small Feeding Type:: breast feeding Current Pain Level(1-10): 0 doing well Physical Exam Constitutional WD/WN, vitals as above Gastrointestinal (Abdomen) abdomen soft and non-tender Musculoskeletal Extremities: extremities normal to inspection Results & Data Vital Signs (Past 12 Hours) Vital Signs Temp Pulse Resp BP Pulse Ox O2 Del Method 02/20/23 09:13 36.6 C 64 16 128/84 98 02/20/23 07:55 36.6 C 64 16 128/84 98 Room Air 02/20/23 07:55 Room Air 02/20/23 04:00 125/80 02/19/23 23:30 36.4 C L 62 16 136/88 99 Room Air Laboratory Results 02/17/23 02/17/23 02/17/23 08:35 08:35 08:35 WBC 9.92 RBC 3.72 L Hgb 11.9 L Hct 33.8 L MCV 90.9 MCH 32.0 MCHC 35.2 RDW Std Deviation 42.1 RDW Coeff of Moriah 12.8 Plt Count 156 MPV 11.3 Cord ABG pH Cord ABG pCO2 Cord ABG pO2 Cord ABG HCO3 Cord ABG Base Excess Cord ABG O2 Sat Blood Gas Comments Sodium 135 L Potassium 4.0 Chloride 108 H Carbon Dioxide 21 Anion Gap 6 BUN 19 Creatinine 0.62 Est Cr Clr Drug Dosing 119.0 Est GFR ( Amer) 139.3 Est GFR (Non-Af Amer) 120.2 BUN/Creatinine Ratio 30.6 H Glucose 77 Calcium 8.3 L Total Bilirubin 0.3 AST 18 ALT 15 Alkaline Phosphatase 144 H Total Protein 5.9 L Albumin 3.2 L Globulin 2.7 Albumin/Globulin Ratio 1.2 Ur Random Creatinine U Random Total Protein Protein/Creatinin Ratio RPR Nonreactive 02/17/23 02/18/23 02/19/23 08:44 19:35 07:57 WBC 16.41 H RBC 3.41 L Hgb 11.0 L Hct 31.1 L MCV 91.2 MCH 32.3 MCHC 35.4 RDW Std Deviation 42.3 RDW Coeff of Moriah 12.9 Plt Count 119 L MPV 11.1 Cord ABG pH 7.24 Cord ABG pCO2 45 Cord ABG pO2 22 Cord ABG HCO3 19 L Cord ABG Base Excess -8.1 Cord ABG O2 Sat < 60.0 Blood Gas Comments BUTCHER Sodium Potassium Chloride Carbon Dioxide Anion Gap BUN Creatinine Est Cr Clr Drug Dosing Est GFR ( Amer) Est GFR (Non-Af Amer) BUN/Creatinine Ratio Glucose Calcium Total Bilirubin AST ALT Alkaline Phosphatase Total Protein Albumin Globulin Albumin/Globulin Ratio Ur Random Creatinine 47.9 U Random Total Protein 6.6 Protein/Creatinin Ratio 0.1 RPR 02/19/23 02/20/23 07:57 05:59 WBC RBC Hgb 10.4 L Hct 29.5 L MCV MCH MCHC RDW Std Deviation RDW Coeff of Moriah Plt Count MPV Cord ABG pH Cord ABG pCO2 Cord ABG pO2 Cord ABG HCO3 Cord ABG Base Excess Cord ABG O2 Sat Blood Gas Comments Sodium 135 L Potassium 4.4 Chloride 108 H Carbon Dioxide 25 Anion Gap 2 L BUN 15 Creatinine 0.62 Est Cr Clr Drug Dosing 119.0 Est GFR ( Amer) 139.3 Est GFR (Non-Af Amer) 120.2 BUN/Creatinine Ratio 24.2 H Glucose 77 Calcium 8.0 L Total Bilirubin 0.4 AST 29 ALT 17 Alkaline Phosphatase 118 H Total Protein 5.1 L Albumin 2.6 L Globulin 2.5 Albumin/Globulin Ratio 1.0 Ur Random Creatinine U Random Total Protein Protein/Creatinin Ratio RPR
== END 2023-02-20 11:45 | disposition home or self-care (01) | DRG 807 ==
LOC: 4S1 07:45 → MERGE 07:45 → 4E2 02-18 23:31

== ENCOUNTER 2024-08-05 16:25 | Inpatient (IN) ==
[2024-08-05 18:32] LABS: Hematocrit (blood only) 37.7 % (37.0-47.0); Hemoglobin 13.3 g/dl (12.0-16.0); Mean Corpuscular Hemoglobin 31.7 pg (25.0-34.0); Mean Corpuscular Hgb Conc 35.3 g/dL (32.0-36.0); Mean Corpuscular Volume 89.8 fL (80.0-100.0); Mean Platelet Volume 10.4 fL (9.4-12.4); Platelet Count 200 K/uL (130-400); White Blood Count 10.52 K/ul (4.8-10.8)
[2024-08-05 18:48] LABS: Albumin Level 3.5 gm/dl (3.4-5.0); Bilirubin,Total 0.3 mg/dl (0.2-1.0); Total Protein 6.9 gm/dl (6.0-8.3)
[2024-08-05] MEDS ORDERED: LIDOCAINE 1% LOCAL 20 ML VIAL INFIL PRN (18:50)
[2024-08-05] MEDS ORDERED: OXYTOCIN 30 UNITS/NSS 30 UNITS/500 ML BAG IV PRN ×2 (18:50→23:44)
[2024-08-05 19:01] LABS: Creatinine Urine Random 28.2 mg/dl; Total Protein Urine Random < 4.0 mg/dl (0-11.9)
[2024-08-05] MEDS: LIDOCAINE 2%/EPINEPHRINE 1:200,000 20 ML PF ONE (20:09)
[2024-08-05] MEDS: fentANYL 2 MCG/ML BUPIVacaine 0.125%-NSS 100ML BAG ONE (20:09)
[2024-08-05] MEDS: BUPIVACAINE 0.25% PF 30 ML VIAL ONE (20:09)
[2024-08-05] MEDS ORDERED: fentaNYL citrate PF 100 MCG/2 ML VIAL EPI PRN (20:16)
[2024-08-05] MEDS ORDERED: LIDOCAINE 2% MPF LOCAL 5 ML VIAL EPI PRN (20:16)
[2024-08-05] MEDS ORDERED: NALBUPHINE HCL INJ 10 MG/ML AMP IV PRN (20:16)
[2024-08-05] MEDS ORDERED: ePHEDrine sulfate 50 MG/ML AMP IV PRN (20:16)
[2024-08-05] MEDS ORDERED: ROPIVACAINE 0.5% PF 5 MG/ML 20 ML VIAL EPI PRN (20:16)
[2024-08-05] MEDS ORDERED: fentANYL 2 MCG/ML BUPIVacaine 0.125%-NSS 100ML BAG EPI PRN (20:16)
[2024-08-05] MEDS ORDERED: NALOXONE HCL 1 MG in SODIUM CHLORIDE 0.9% 1,000 ML IV PRN (20:16)
[2024-08-05] MEDS ORDERED: SODIUM CHLORIDE 0.9% PF INJ 10 ML VIAL EPI PRN (20:16)
[2024-08-05] MEDS ORDERED: NALOXONE HCL 0.4 MG/1 ML VIAL/CARP IV PRN (20:16)
[2024-08-05] MEDS ORDERED: diphenhydrAMINE 50 MG/ML VIAL IV PRN (20:16)
[2024-08-05] MEDS ORDERED: BUPIVACAINE 0.25% PF 30 ML VIAL EPI PRN (20:16)
[2024-08-05] MEDS ORDERED: ONDANSETRON INJ 2 MG/ML 2 ML VIAL IV PRN (20:16)
[2024-08-05] MEDS ORDERED: PROMETHAZINE 6.25 MG/50.25 ML BAG IV PRN (20:16)
--- NOTE | 2024-08-05 20:16 | Anesthesiology Consultation ---
Date of Service August 05, 2024 Assessment & Plan Chart Review Chart Review: Patient NOT seen in Pre Admission Testing and Acceptable Risk for Labor Epidural Consults Requested none ASA ASA2 Proposed Anesthesia Anesthesia Type: Labor Epidural Risk / Benefits Reviewed With: PT / POA / Parent / Guardian, Accepts Plan and Informed Consent Obtained History Height/Weight Height: 5 ft 1 in Weight: 69.853 kg Allergies Allergy/AdvReac Type Severity Reaction Status Date / Time No Known Allergies Allergy Unverified 02/17/23 09:25 Medications Home Medications Medication Instructions Recorded Confirmed Last Taken vits no.124-ferrous fum 1 tab PO DAILY 02/17/23 08/05/24 08/03/24 27 mg iron-folic acid 800 mcg tablet ( Vitamin) Past Medical History Medical History Elevated BP without diagnosis of hypertension HPV (human papilloma virus) infection ASCUS Scoliosis Exercise / Class Metabolic Activity II 4-5 Yardwork/Stairs/Walk up hill Past Family History Family History Other Hypertension Past Surgical History Surgical History [place] teeth extracted Past Anesthesia History No Hx of Anesthesia Complications and No Family Hx of Anesthesia Complications History of PONV No Hx of PONV and No Hx of Motion Sickness Social History Smoking Status: Never smoker Hx Alcohol Use: No Hx Substance Use: No Physical Exam Vital Signs Last Vital Signs Temp 36.7 C 08/05/24 19:30 Pulse 88 08/05/24 20:13 Resp 16 08/05/24 19:30 BP 128/76 08/05/24 20:13 Pulse Ox 100 08/05/24 20:12 ENMT Mouth: no dentition abnormality Thyromental Distance: > or= 3.5 Finger Breadths Mallampati Class: II Neck normal visual inspection Respiratory normal respiratory effort Auscultation: lungs clear to auscultation bilaterally Cardiovascular Rate/Rhythm: regular rate and regular rhythm Psychiatric Orientation: alert Testing Laboratory Results 08/05/24 18:06
[2024-08-05] MEDS: BUPIVACAINE 0.25% PF 30 ML VIAL EPI STA (21:24)
[2024-08-05] MEDS: ePHEDrine sulfate 50 MG/ML AMP ONE (21:24)
[2024-08-05] MEDS: SODIUM CHLORIDE 0.9% PF INJ 10 ML VIAL ONE (21:24)
[2024-08-05] MEDS: fentaNYL citrate PF 100 MCG/2 ML VIAL ONE (21:24)
[2024-08-05] MEDS: LIDOCAINE 2%/EPINEPHRINE 1:200,000 20 ML PF EPI STA (21:25)
[2024-08-05] MEDS: fentaNYL citrate PF 100 MCG/2 ML VIAL EPI STA (21:25)
[2024-08-05] MEDS: SODIUM CHLORIDE 0.9% PF INJ 10 ML VIAL EPI STA (21:25)
--- NOTE | 2024-08-05 21:29 | History & Physical Report ---
Date of Service August 05, 2024 Assessment & Plan Admission and Anticipated Discharge Date Admission Date: August 05, 2024 History of Present Illness Chief Complaint: onset of labor at 39 weeks Primary Care Provider: GLADYS PCP 34 F P1001 at 39.1 weeks presents to L&D in labor. GBS is negative. Allergies Allergy/AdvReac Type Severity Reaction Status Date / Time No Known Allergies Allergy Unverified 02/17/23 09:25 Home Medications Medication Instructions Recorded Confirmed Type vits no.124-ferrous fum 1 tab PO DAILY 02/17/23 08/05/24 History 27 mg iron-folic acid 800 mcg tablet ( Vitamin) Patient History Medical History Elevated BP without diagnosis of hypertension HPV (human papilloma virus) infection ASCUS Scoliosis Surgical History [place] teeth extracted Family History Other Hypertension Social History Smoking Status: Never smoker Second Hand Exposure: No; Hx Alcohol Use: No Hx Substance Use: No Preferred Language: Cook Islander Communication Ability: Effective Zinc Plate Cutter Required: No Beliefs That Will Affect Care: None marital status: marital status details: Katie Deshpande (TJ) Current Living Situation: Family Current Living Situation Comment: Lives at home with , daughter, and one cat. 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 neg Review of Systems All systems reviewed & are unremarkable except as noted in HPI & below Physical Exam Constitutional: WD/WN, vitals as above Eyes: PERRL, conjunctivae normal, anicteric sclerae Respiratory: normal respiratory effort, lungs clear to auscultation Cardiovascular: Rate/Rhythm: regular rate and regular rhythm Gastrointestinal (Abdomen): normal bowel sounds, soft, nontender, no hepatosplenomegaly Musculoskeletal: Extremities: extremities normal to inspection Skin: no rashes, warm and dry Neurologic: patellar DTR's 2+ bilat, sensation intact Psychiatric: A+Ox3, euthymic affect Genitourinary: no vaginal lesions, no adnexal mass normal external appearan ce Manual OB Exam: + cervical dilation 5 cm, + cervical effacement 90%, + station -2 and + amniotic fluid (AROM with Amni-hook clear fluid) clear OB Exam Monitor Tracing: + external FHT monitor used, + external uterine monitor used, + category I and + normal FHT variability Will start Oxytocin to augment contractions Results & Data Vital Signs (Past 12 Hours) Vital Signs Temp Pulse Resp BP Pulse Ox 08/05/24 21:22 84 100 08/05/24 21:20 75 111/66 08/05/24 21:17 73 100 08/05/24 21:15 16 08/05/24 21:15 16 08/05/24 21:12 74 100 08/05/24 21:07 73 100 08/05/24 21:05 76 118/81 08/05/24 21:02 90 100 08/05/24 21:00 16 08/05/24 21:00 16 08/05/24 20:57 88 100 08/05/24 20:52 81 100 08/05/24 20:47 89 100 08/05/24 20:45 71 18 121/79 08/05/24 20:42 67 100 08/05/24 20:40 88 116/76 08/05/24 20:37 75 100 08/05/24 20:35 81 116/76 08/05/24 20:32 94 H 100 08/05/24 20:30 76 125/79 08/05/24 20:27 78 100 08/05/24 20:26 76 118/79 08/05/24 20:22 81 100 08/05/24 20:19 82 130/84 08/05/24 20:17 78 132/85 100 08/05/24 20:15 87 16 131/82 08/05/24 20:13 88 128/76 08/05/24 20:12 100 08/05/24 20:12 88 08/05/24 20:12 81 133/85 08/05/24 20:09 78 130/85 08/05/24 20:07 90 100 08/05/24 20:02 95 H 100 08/05/24 19:57 81 100 08/05/24 19:52 90 100 08/05/24 19:47 75 100 08/05/24 19:42 85 100 08/05/24 19:37 80 100 08/05/24 19:30 16 08/05/24 19:30 36.7 C 16 08/05/24 19:13 79 127/78 08/05/24 18:42 88 127/76 08/05/24 17:36 69 141/91 H 08/05/24 17:32 64 161/91 H 08/05/24 17:20 71 08/05/24 17:20 140/94 08/05/24 17:20 66 138/92 08/05/24 17:12 36.7 C 16
[2024-08-05] MEDS: SODIUM CHLORIDE 0.9% 1,000 ML IV SCH (21:45)
[2024-08-05] MEDS: OXYTOCIN 30 UNITS/NSS 30 UNITS/500 ML BAG IV PRN (21:46)
[2024-08-05] MEDS ORDERED: bisacodyL 10 MG SUPP PR PRN (23:44)
[2024-08-05] MEDS ORDERED: HYDROCORTISONE ACETATE 25 MG SUPP PR PRN (23:44)
[2024-08-05] MEDS ORDERED: ACETAMINOPHEN 325 MG TAB PO PRN (23:44)
--- NOTE | 2024-08-05 23:46 | Delivery Summary ---
Vaginal Delivery Summary Date of Service August 05, 2024 Vaginal Delivery Summary live male FABIO over intact perineum with delayed cord clamping. Apgars 8/9 weight pending. Placenta delivered spontaneously and intact. No tears. QBL 100 ml. Final sponge and instrument count are correct. Mom and baby stable.
[2024-08-06] MEDS: DIPHTHER/TETAN/PERTUS Vaccine (Tdap, Adol/Adult) 0.5mL IM ONE (00:32)
--- OUTSIDE RECORDS SUMMARY | 2024-08-06 00:47 | External Medical Summary | Summary of Care ---
Author Name Unknown Organization [facility] Address [address] [place] [address] Phone [phone] Care Team Providers Care Fire Chief'S Aide Name Role Phone Srinivas Marcus Primary Care Provider Reason for Visit * Reason Comments Return Visit Encounter Details Date Type Department Care Team (Late st Contact Info) Description 08/01/2024 10:45 AM EST Office Visit [facility]ne[facility] [address] [place] [phone] Liang Lopez MD [address] [place] [id number] Supervision of other normal , antepartum* Allergies No known active allergiesdocumented as of this encounter (statuses as of 08/01/2024) Medications 19 29-1 MG Oral Tablet Chewable Take by mouth. Active documented as of this encounter (statuses as of 08/01/2024) Active Problems Problem Noted Date Diagnosed Date Supervision of other normal , antepartu m 02/08/2024 Sore throat (viral) 10/12/2022 Upper respiratory tract infection 10/12/2022 Acute tonsillitis 12/31/2009 Idiopathic scoliosis 08/01/2007 VARICELLA UNCOMPLICATED - age 3 Estimated Date of Delivery Comme nts Yes 08/04/2024 Based on last me nstrual period of 10/29/2023 (Exact Date) documented as of this encounter (statuses as of 08/01/2024) Resolved Problems Problem Noted Date Diagnosed Date Resolved Date GBS (group B Streptococcus c arrier), +RV culture, currently 01/24/2023 03/16/2023 22 weeks gestation of 10/12/2022 01/24/2023 ASCUS with positive high risk HPV cervical 06/30/2022 03/16/2023 Overview (06/30/2022): ASC-US, HPV positive pap smear on 04/26/2021. S/p colposcopy on 05/17/2021: A. Endocervix, curettage: -- Unoriented fragments of dysplastic squamous mucosa, unable to definitively grade. -- Inflamed mucus and fragments of benign endocervix, negative for dysplasia. -- See comment. 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 However, we cannot entirely exclude higher grade lesion. Normal , first 06/30/202203/03 documented as of this encounter (statuses as of 08/01/2024) Immunizations Name Administration Dates Next Due Meningococcal Conjugate Vaccine (Menactra/Menveo ) 02/13/2009 Seasonal Influenza Vac., MDV, IM, 0.5 mL (Fluzon e) 07/12/2012 TDAP, Age 7 and older, IM (Adacel) 02/13/2009 documented as of this encounter Social History Tobacco Use Types Packs/Day Years Used Date Smoking Tobacco: Never Smokeless Tobacco: Never Comments:parents smoke, but "not in home" Alcohol Use Standard Drinks/Week Comments No 0 (1 standard drink = 0.6 oz pur e alcohol) PHQ-2 Answer Date Recorded PHQ-2 Score -1 03/23/2020 Hunger Vital Sign Answer Date Recorded Within the past 12 months, y ou worried that your food would run out before you got the money to buy more. Patient declined Within the past 12 months, t he food you bought just didn't last and you didn't have money to get more. Patient declined 04/2024 Leslie Depression Scale Answer Date Recorded Leslie Depression Scale Total 1 06/27/2024 The thought of harming myself has occurred to me . Never 06/27/2024 Childcare Answer Date Recorded Do you feel overwhelmed with taking care of a child, family member or friend? No 01/10/2024 Does your family need help f inding childcare? (Household - for ages 0-17 years) Not on file 01/10/2024 Clothing Answer Date Recorded Have you been unable to get clothing when it was really needed? No 01/10/2024 Is your family able to get c lothes or diapers when needed? (Household - for ages 0-17 years) Not on file 01/10/2024 Personal Safety Answer Date Recorded Do you feel unsafe or have concerns for your saf ety? No 01/10/2024 Do you have concerns for you r family's safety? (Household - for ages 0-17 years) Not on file 01/10/2024 Utilities Answer Date Recorded Do you have trouble paying y our heating, water, or electric bill? No 01/10/2024 Is your family able to pay t he heat, water, or electric bill? (Household - for ages 0-17 years) Not on file 01/10/2024 Does your family have access to good internet? (Household - for ages 0-17 years) Not on file 01/10/2024 Employment Status Answer Date Recorded Are you unemployed or without regular income? No 01/10/2024 Does the household have a re lar source of income? (Household - for ages 0-17 years) Not on file 01/10/2024 Social Connections Answer Date Recorded How often do you feel lonely or isolated from th ose around you? Never 01/10/2024 Financial Resource Strain Answer Date R ecorded Do you have any trouble payi ng for your medications, or do you think you might in the future? No 01/10/2024 Does your family have troubl e paying for medicine? (Household - for ages 0-17 years) Not on file 01/10/2024 Transportation Needs Answer Date Record ed Do you have trouble getting a ride to medical visits or work? (Adult - for ages 18 years and over) Not on file 01/10/2024 Does your family have a hard time getting a ride to doctors visits? (Household - for ages 0-17 years) Not on file 01/10/2024 Has lack of transportation k ept you from medical appointments, meetings, work, or from getting things needed for daily living? Check all that apply. No 01/10/2024 Do you (or your family) have trouble finding or paying for a ride (transportation)? (Household - for ages 0-17 years) Not on file 01/10/2024 Housing Stability Answer Date Recorded Do you currently live in a s helter or have no steady place to sleep at night? No 01/10/2024 Do you think you are at risk of becoming homeless? (Adult - for ages 18 years and over) Not on file 01/10/2024 Does your family worry about paying for your home or becoming homeless? (Household - for ages 0-17 years) Not on file 0 01/10/2024 Are you homeless or worried that you might be in the future? No 01/10/2024 Are you (or your family) sarita eless or worried that you might be in the future? (Household - for ages 0-17 years) Not on file Food Insecurity Answer Date Recorded Do you need food for this week? No 01/10/2024 Are you able to get enough f ood for your family? (Household - for ages 0-17 years) Not on file 01/10/2024 Does your family need food t his week? (Household - for ages 0-17 years) Not on file 01/10/2024 Do you always have enough fo od for your family? 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 Not on file Not on file Not on file documented as of this encounter Last Filed Vital Signs Vital Sign Reading Time Taken Comments Blood Pressure 108/62 08/01/2024 10:48 AM EST Pulse - - Temperature - - Respiratory Rate - - Oxygen Saturation - - Inhaled Oxygen Concentration - - Weight 71.2 kg (157 lb) 08/01/2024 10:48 AM EST Height 154.9 cm (5' 1") 08/01/2024 10:48 AM EST Body Mass Index 29.66 08/01/2024 10:48 AM EST documented in this encounter Progress Notes * Liang Lopez MD - 08/01/2024 10:54 AM EST Pt dong well No complaints No ctx RTC 1 week * Blanca Brown LPN - 08/01/2024 10:48 AM EST 39w4d Denies any concerns documented in this encounter Plan of Treatment Health Maintenance Due Date Last Done Comments DTap/Tdap Vaccines (7 - Td or Tdap) 02/13/2019 02/13/2009, 03/05/1998, 08/31/1994, Additional history exists Depression Screening 10/24/2020 10/25/2019 COVID-19 Vaccine ( season) 2024 Influenza Vaccine (FLU shot) (#1) 2024 07/12/2012 Cervical Cancer Screening 01/09/2027 HPV/Co-Test 01/09/2027 01/10/2024, 06/30/2022 Pap Smear 01/09/2027 01/10/2024, 1203/2022, 04/26/2021, Additional history exists Hepatitis B Vaccine Completed 07/19/1994, 08/27/1992, 07/15/1992 MENINGOCOCCAL (MENACTRA/MENVEO) Completed 02/13/2009 HPV (Gardasil) Vaccine Aged Out No lo nger eligible based on patient's age to complete this topic Pneumococcal Vaccine: Pediatrics (0 to 5 Years) and At-Risk Patients (6 to 18 Years and 19+ Years) Aged Out No longer eligib le based on patient's age to complete this topic documented as of this encounter Goals Goal Patient Goal Type Associated Problems Recent Progress Patient-Stated? Author Reminders Care Plan OB Reminders No Mychart, Provider documented as of this encounter Medical Devices Not on filedocumented as of this encounter Visit Diagnoses Diagnosis Supervision of other normal , antepartum- Primary documented in this encounter Additional Health Concerns Active Problems Noted Date Diagnosed Date OB Reminders 02/13/2024 documented as of this encounter Care Teams Fire Chief'S Aide Relationship Specialty Start Date End Date Srinivas Marcus DO [address] [place] [id number] PCP - General Family Medicine 06/18/19 documented as of this encounter
--- OUTSIDE RECORDS SUMMARY | 2024-08-06 00:47 | External Medical Summary | Summary of Care ---
Author Name Unknown Organization [facility] Address [address] [facility] [place] [address] Phone [phone] Care Team Providers Care Mmd Unit Teacher Name Role Phone Srinivas Marcus Primary Care Provider Reason for Visit * Reason Comments Return Visit Encounter Details Date Type Department Care Team (Late st Contact Info) Description 07/24/2024 4:30 PM EST Office Visit Gynecology/Obstetric s Bobby Valladares [address] [place] [address] Malathi Tyson PA-C [address] [place] [phone] Supervision of other normal , antepartum* Allergies No known active allergiesdocumented as of this encounter (statuses as of 07/24/2024) Medications 19 29-1 MG Oral Tablet Chewable Take by mouth. Active documented as of this encounter (statuses as of 07/24/2024) Active Problems Problem Noted Date Diagnosed Date Supervision of other normal , antepartu m 02/08/2024 Sore throat (viral) 10/12/2022 Upper respiratory tract infection 10/12/2022 Acute tonsillitis 12/31/2009 Idiopathic scoliosis 08/01/2007 VARICELLA UNCOMPLICATED - age 3 Estimated Date of Delivery Comme nts Yes 08/04/2024 Based on last me nstrual period of 10/29/2023 (Exact Date) documented as of this encounter (statuses as of 07/24/2024) Resolved Problems Problem Noted Date Diagnosed Date [...] as of this encounter (statuses as of 07/24/2024) Immunizations Name Administration Dates Next Due Meningococcal [...] money to get more. Patient declined 04/2024 Cornell Depression Scale Answer Date Recorded Cornell Depression Scale Total 1 06/27/2024 The thought [...] Sign Reading Time Taken Comments Blood Pressure 110/68 07/24/2024 4:43 PM EST Pulse - - Temperature - - Respiratory Rate - - Oxygen Saturation - - Inhaled Oxygen Concentration - - Weight 71 kg (156 lb 9.6 oz) 07/24/2024 4:43 PM EST Height 154.9 cm (5' 1") 07/24/2024 4:43 PM EST Body Mass Index 29.59 07/24/2024 4:43 PM EST documented in this encounter Progress Notes * Malathi Tyson PA-C - 07/24/2024 5:02 PM EST 38w3d No complaints today. Patient wishes to discuss IOL. Prefers postdate IOL. Scheduled for 08/09/2024 ather preference. Denies VB, LOF, regular contractions. Having some mild cramping, no timing regularity or severity. Declines cervical check. RTC in 1 week Malathi Tyson PA-C documented in this encounter Nursing Notes * Miracle Khanna RN - 07/24/2024 4:47 PM EST Patient here for DAVID 38w3d No concerns + FM No vaginal bleeding/leaking or contractions Miracle Khanna RN documented in this encounter Plan of Treatment Health Maintenance Due Date Last Done Comments DTap/Tdap Vaccines (7 - Td or Tdap) 02/13/2019 02/13/2009, 03/05/1998, 08/31/1994, Additional history exists Depression Screening 10/24/2020 10/25/2019 COVID-19 Vaccine ( season) 2024 Influenza Vaccine (FLU shot) (#1) 2024 07/12/2012 Cervical Cancer Screening 01/09/2027 HPV/Co-Test 01/09/2027 01/10/2024, 06/30/2022 Pap Smear 01/09/2027 01/10/2024, 06/03, 04/26/2021, Additional history exists Hepatitis B Vaccine [...] Author Reminders Care Plan OB Reminders No Esteehart, Provider documented as of this encounter Medical Devices Not on filedocumented as of this encounter Visit Diagnoses Diagnosis Supervision of other normal , antepartum- Primary documented in this encounter Additional Health Concerns Active Problems Noted Date Diagnosed Date OB Reminders 02/13/2024 documented as of this encounter Care Teams Mmd Unit Teacher Relationship Specialty Start Date End Date Srinivas Marcus DO [address] [place] [id number] PCP - General Family Medicine 06/18/19 documented as of this encounter
--- OUTSIDE RECORDS SUMMARY | 2024-08-06 00:47 | External Medical Summary | Summary of Care ---
Author Name Unknown Organization [facility] Address [address] [facility] [place] [address] Phone [phone] Care Team Providers Care Premium Representative Name Role Phone Srinivas Marcus Primary Care Provider Reason for Visit * Reason Onset Date Comments Scheduling 07/24/2024 Encounter Details Date Type Department Care Team (Late st Contact Info) Description 07/24/2024 Telephone Gynecology/Obstetrics [facility] [address] [place] [address] Malathi Tyson PA-C [address] [place] [address] Scheduling Allergies No known active allergiesdocumented as of this encounter (statuses as of 07/25/2024) Medications 19 29-1 MG Oral Tablet Chewable Take by mouth. Active documented as of this encounter (statuses as of 07/25/2024) Active Problems Problem Noted Date Diagnosed Date Supervision of other normal , antepartu m 02/08/2024 Sore throat (viral) 10/12/2022 Upper respiratory tract infection 10/12/2022 Acute tonsillitis 12/31/2009 Idiopathic scoliosis 08/01/2007 VARICELLA UNCOMPLICATED - age 3 Estimated Date of Delivery Comme nts Yes 08/04/2024 Based on last me nstrual period of 10/29/2023 (Exact Date) documented as of this encounter (statuses as of 07/25/2024) Resolved Problems Problem Noted Date Diagnosed Date [...] as of this encounter (statuses as of 07/25/2024) Immunizations Name Administration Dates Next Due DTWP - Dipth/Tet/Whole Cell Pertussis 01/16/1992 ,1991,1991 DTaP Dipth/Tet/Acell Pertussis (Infanrix), Peds 03/05/1998,08/31/1994 Haemophilius B (HIB), unspecified 1994,01/16/1992,1991,07/23 Hepatitis B Vaccine 07/19/1994,08/27/1992,1992 MMR - Measles/Mumps/Rubella Vaccine 03/05/1998,0 07/19/1994 Meningococcal Conjugate Vacc ine (Menactra/Menveo) 02/13/2009 OPV - Polio Virus Vaccine (Oral) 998,08/31/1994,1991,07/23 Seasonal Influenza Vac., MDV , IM, 0.5 mL (Fluzone) 07/12/2012 TDAP, Age 7 and older, IM [...] money to get more. Patient declined 04/2024 [place] Depression Scale Answer Date Recorded [place] Depression Scale Total 1 06/27/2024 The thought [...] 01/10/2024 Does the household have a re gular source of income? (Household - for ages [...] on file documented as of this encounter Miscellaneous Notes * Telephone Encounter - Zari Moon OSA - 07/25/2024 8:37 AM EST Noted * Telephone Encounter - Miracle Khanna RN - 07/24/2024 5:24 PM EST Patient scheduled for IOL for post dates at [facility] on 08/09/2024. Please make provider aware. documented in this encounter Plan of Treatment Upcoming Encounters Date Type Department Care Team (Late st Contact Info) Description 08/01/2024 4:30 PM EST Office Visit Gynecology/Obstetrics [facility] [address] [place] [address] Malathi Tyson PA-C [address] [place] [address] Health Maintenance Due Date Last Done Comments [...] Patient-Stated? Author Reminders Care Plan OB Reminders Miguel Otero documented as of this encounter Medical Devices Not on filedocumented as of this encounter Additional Health Concerns Active Problems Noted Date Diagnosed Date OB Reminders 02/13/2024 documented as of this encounter Care Teams Premium Representative Relationship Specialty Start Date End Date Srinivas Marcus DO [address] [address] PCP - General Family Medicine 06/18/19 documented as of this encounter
--- OUTSIDE RECORDS SUMMARY | 2024-08-06 00:47 | External Medical Summary | Summary of Care ---
Author Name Unknown Organization [facility] Address [address] [facility] [place] [address] Phone [phone] Care Team Providers Care Box Truck Owner Operator Name Role Phone Arcenio Marcusvor Joycelyn Primary Care Provider Encounter Details Date Type Department Care Team (Late st Contact Info) Description 07/24/2024 Telephone Gynecology/Obstetrics [facility] [address] [place] [address] Malathi Tyson PA-C [address] [facility] [address] Allergies No known active allergiesdocumented as of [...] Resolved Date GBS (group B Streptococcus c arrcorona), +RV culture, currently 01/24/2023 03/16/2023 22 weeks [...] money to get more. Patient declined 04/2024 [place] Depression Scale Answer Date Recorded [place] Depression Scale Total 1 06/27/2024 The thought [...] encounter Miscellaneous Notes * Telephone Encounter - Miracle Khanna RN - 07/24/2024 5:24 PM EST Patient scheduled for IOL for post dates at [facility] on 08/09/2024. Please make provider aware. [...] Author Reminders Care Plan OB Reminders No Kashif, Provider documented as of this encounter Medical Devices Not on filedocumented as of this encounter Additional Health Concerns Active Problems Noted Date Diagnosed Date OB Reminders 02/13/2024 documented as of this encounter Care Teams Box Truck Owner Operator Relationship Specialty Start Date End Date Srinivas Marcus DO [address] [address] PCP - General Family Medicine 06/18/19 documented as of this encounter
--- OUTSIDE RECORDS SUMMARY | 2024-08-06 00:47 | External Medical Summary | Summary of Care ---
Author Name Unknown Organization [facility] Address [address] [facility] [place] [address] Phone [phone] Care Team Providers Care Blood Bank Manager Name Role Phone Srinivas Marcus Primary Care Provider Reason for Visit * Reason Comments Return Visit Encounter Details Date Type Department Care Team (Late st Contact Info) Description 07/15/2024 1:45 PM EST Office Visit Gynecology/Obstetric s [facility] [address] [place] [address] BackerCourtney CRNP [address] [facility] [address] Supervision of other normal , antepartum*; Varicose veins of leg with swelling, right Allergies No known active allergiesdocumented as of this encounter (statuses as of 07/15/2024) Medications 19 29-1 MG Oral Tablet Chewable Take by mouth. Active documented as of this encounter (statuses as of 07/15/2024) Active Problems Problem Noted Date Diagnosed Date Supervision of other normal , antepartu m 02/08/2024 Sore throat (viral) 10/12/2022 Upper respiratory tract infection 10/12/2022 Acute tonsillitis 12/31/2009 Idiopathic scoliosis 08/01/2007 VARICELLA UNCOMPLICATED - age 3 Estimated Date of Delivery Comme nts Yes 08/04/2024 Based on last me nstrual period of 10/29/2023 (Exact Date) documented as of this encounter (statuses as of 07/15/2024) Resolved Problems Problem Noted Date Diagnosed Date [...] as of this encounter (statuses as of 07/15/2024) Immunizations Name Administration Dates Next Due Meningococcal [...] money to get more. Patient declined 04/2024 [place] Depression Scale Answer Date Recorded [place] Depression Scale Total 1 06/27/2024 The thought [...] Sign Reading Time Taken Comments Blood Pressure 116/74 07/15/2024 1:46 PM EST Pulse - - Temperature - - Respiratory Rate - - Oxygen Saturation - - Inhaled Oxygen Concentration - - Weight 70 kg (154 lb 6.4 oz) 07/15/2024 1:46 PM EST Height - - Body Mass Index 29.17 07/08/2024 4:40 PM EST documented in this encounter Progress Notes * Courtney Norris CRNP - 07/15/2024 1:50 PM EST 37w1d Baby is active. Denies leaking, bleeding, ctx. +varicose veins in her legs. Today noted a palpable "knot" on R calf, tender. No warmth or redness.Neg venous doppler of RLE on 07/04. Wears compression socks when working. Will obtain repeat venous doppler. 1 week return DARRION Hope documented in this encounter Plan of Treatment Upcoming Encounters Date Type Department Care Team (Late st Contact Info) Description 07/15/2024 2:30 PM EST Imaging Radiology [facility] [address] [facility] [place] [address] Varicose veins of leg with swelling, right 07/24/2024 4:30 PM EST Office Visit Gynecology/Obstetric s [facility] [address] [facility] [place] [address] Malathi Tyson PA-C [address] [facility] [place] [address] Pending Results Name Type Priority Associated Diagnoses Date /Time VASC DUPLEX VENOUS LE UNILAT Medical Imaging Routine Varicose veins of leg with swelling, right 07/15/2024 2:10 PM EST Scheduled Orders Name Type Priority Associated Diagnoses Orde r Schedule VASC DUPLEX VENOUS LE UNILAT Medical Imaging Routine Varicose veins of leg with swelling, right Expected: 07/15/2024, Expires: 08/15/2025 Health Maintenance Due Date Last Done Comments [...] Supervision of other normal , antepartum- Primary Varicose veins of leg with swelling, right Varicose veins of leg with swelling, right documented in this encounter Additional Health Concerns Active Problems Noted Date Diagnosed Date OB Reminders 02/13/2024 documented as of this encounter Care Teams Blood Bank Manager Relationship Specialty Start Date End Date Srinivas Marcus DO [address] [place] [address] PCP - General Family Medicine 06/18/19 documented as of this encounter
--- OUTSIDE RECORDS SUMMARY | 2024-08-06 00:47 | External Medical Summary | Summary of Care ---
Author Name Unknown Organization [facility] Address [address] [place] [address] Phone [phone] Care Team Providers Care Emergency Manager Name Role Phone Arcenio Marcusvor Joycelyn Primary Care Provider Encounter Details Date Type Department Care Team (Late st Contact Info) Description 06/29/2024 Result Scan Unspecified Department <No scans attached> Allergies No known active allergiesdocumented as of this encounter (statuses as of 07/01/2024) Medications 19 29-1 MG Oral Tablet Chewable Take by mouth. Active documented as of this encounter (statuses as of 07/01/2024) Active Problems Problem Noted Date Diagnosed Date Supervision of other normal , antepartu m 02/08/2024 Sore throat (viral) 10/12/2022 Upper respiratory tract infection 10/12/2022 Acute tonsillitis 12/31/2009 Idiopathic scoliosis 08/01/2007 VARICELLA UNCOMPLICATED - age 3 Estimated Date of Delivery Comme nts Yes 08/04/2024 Based on last me nstrual period of 10/29/2023 (Exact Date) documented as of this encounter (statuses as of 07/01/2024) Resolved Problems Problem Noted Date Diagnosed Date [...] as of this encounter (statuses as of 07/01/2024) Immunizations Name Administration Dates Next Due Meningococcal [...] money to get more. Patient declined 04/2024 [place] Depression Scale Answer Date Recorded [place] Depression Scale Total 1 06/27/2024 The thought [...] No 01/10/2024 Does the household have a [facility] source of income? (Household - for ages [...] on file documented as of this encounter Plan of Treatment Upcoming Encounters Date Type Department Care Team (Late st Contact Info) Description 07/08/2024 4:30 PM EST Office Visit Gynecology/Obstetrics [facility]ada[facility] [address] [place] [address] Malathi Tyson PA-C [address] [place] [address] Health Maintenance Due Date Last Done Comments [...] Not on filedocumented as of this encounter Procedures Procedure Name Priority Date/Time Associated Diagnosis Comments OUTSIDE LAB RESULTS 06/29/2024 documented in this encounter Results * OUTSIDE LAB RESULTS (06/29/2024) 06/29/2024 us No Physician Data Unknown LABORATORY Final Result documented in this encounter Additional Health Concerns Active Problems Noted Date Diagnosed Date OB Reminders 02/13/2024 documented as of this encounter Care Teams Emergency Manager Relationship Specialty Start Date End Date Srinivas Marcus DO [address] [address] PCP - General Family Medicine 06/18/19 documented as of this encounter
--- OUTSIDE RECORDS SUMMARY | 2024-08-06 00:47 | External Medical Summary | Summary of Care ---
Author Name Unknown Organization [facility] Address [address] [place] [address] Phone [phone] Care Team Providers Care Outbound Sales Advisor Name Role Phone Srinivas Marcus Primary Care Provider Encounter Details Date Type Department Care Team (Late st Contact Info) Description 07/24/2024 Population Health External Data Unspecified Department Allergies No known active allergiesdocumented as of [...] money to get more. Patient declined 04/2024 [place] Depression Scale Answer Date Recorded [place] Depression Scale Total 1 06/27/2024 The thought [...] Description 07/24/2024 4:30 PM EST Office Visit Gynecology/Obstetrics [facility] Valladares [address] [place] [address] Malathi Tyson PA-C [address] [place] [address] Health Maintenance Due Date Last Done Comments [...] documented as of this encounter Care Teams Outbound Sales Advisor Relationship Specialty Start Date End Date Srinivas Marcus DO [address] [place] [address] PCP - General Family Medicine 06/18/19 documented as of this encounter
--- OUTSIDE RECORDS SUMMARY | 2024-08-06 00:47 | External Medical Summary | Summary of Care ---
Author Name Unknown Organization [facility] Address [address] [facility] [place] [address] Phone [phone] Care Team Providers Care Sample Display Preparer Name Role Phone Srinivas Marcus Primary Care Provider Reason for Visit * Reason Comments Return Visit Encounter Details Date Type Department Care Team (Late st Contact Info) Description 06/27/2024 3:45 PM EST Office Visit Gynecology/Obstetric s [facility]adares [address] [place] [address] Trinh Bustillos PA-C [address] [place] [address] Supervision of other normal , antepartum*; Vulvar varices during Allergies No known active allergiesdocumented as of this encounter (statuses as of 07/04/2024) Medications 19 29-1 MG Oral Tablet Chewable Take by mouth. Active documented as of this encounter (statuses as of 07/04/2024) Active Problems Problem Noted Date Diagnosed Date Supervision of other normal , antepartu m 02/08/2024 Sore throat (viral) 10/12/2022 Upper respiratory tract infection 10/12/2022 Acute tonsillitis 12/31/2009 Idiopathic scoliosis 08/01/2007 VARICELLA UNCOMPLICATED - age 3 Estimated Date of Delivery Comme nts Yes 08/04/2024 Based on last me nstrual period of 10/29/2023 (Exact Date) documented as of this encounter (statuses as of 07/04/2024) Resolved Problems Problem Noted Date Diagnosed Date [...] as of this encounter (statuses as of 07/04/2024) Immunizations Name Administration Dates Next Due Meningococcal [...] money to get more. Patient declined 04/2024 [place] Depression Scale Answer Date Recorded [place] Depression Scale Total 1 06/27/2024 The thought [...] Sign Reading Time Taken Comments Blood Pressure 104/62 06/27/2024 4:02 PM EST Pulse - - Temperature - - Respiratory Rate - - Oxygen Saturation - - Inhaled Oxygen Concentration - - Weight 69.9 kg (154 lb) 06/27/2024 4:02 PM EST Height - - Body Mass Index 29.1 06/05/2024 3:43 PM EST documented in this encounter Progress Notes * Estrellita Severino LPN - 06/27/2024 4:05 PM EST 34w4d Denies vagina bleeding/rom + movement * Trinh Bustillos PA-C - 06/27/2024 4:02 PM EST Ai Deshpande is a 34 year old female here for her routine OB appointment at 34w4d Her Estimated Date of Delivery: 08/04/24 REVIEW OF SYSTEMS: She affirms movement. Denies vaginal bleeding, LOF, contractions. + calf tightness/cramping, specifically after she is on her feet for long periods of time. PHYSICAL EXAM BP 104/62 | Wt 69.9 kg (154 lb) | LMP 10/29/2023 (Exact Date) | BMI 29.10 kg/m | BSA 1.73 m +FHT 130s Fundal height 34 cm ASSESSMENT/PLAN Supervision of other normal , antepartum (Primary) Vulvar varices during - Further discussed recommendations for comfort measures in to include belly band/pelvic support belt, rest, hydration. - Reassurance that these resolve following delivery. Supervision of - discussed GBS and to expect swab to be complete at next visit - encouraged hydration and [employer] foam over the counter for calf cramping/spasms. DVT precautions given. - labor precautions and kick counts reviewed RTO in 2 weeks Trinh Bustillos PA-C 06/27/2024 documented in this encounter Plan of Treatment Upcoming Encounters Date Type Department Care Team (Late st Contact Info) Description 07/08/2024 4:30 PM EST Office Visit Gynecology/Obstetrics [facility] [address] [address] Malathi Tyson PA-C [address] [place] [address] Health Maintenance Due Date Last Done Comments DTap/Tdap Vaccines (7 - Td or Tdap) 02/13/2019 02/13/2009, 03/05/1998, 08/31/1994, Additional history exists Depression Screening 10/24/2020 10/25/2019 COVID-19 Vaccine ( - 2023- season) 2024 Influenza Vaccine (FLU shot) (#1) [...] Author Reminders Care Plan OB Reminders No Kashif Provider documented as of this encounter Medical Devices Not on filedocumented as of this encounter Visit Diagnoses Diagnosis Supervision of other normal , antepartum- Primary Vulvar varices during documented in this encounter Additional Health Concerns Active Problems Noted Date Diagnosed Date OB Reminders 02/13/2024 documented as of this encounter Care Teams Sample Display Preparer Relationship Specialty Start Date End Date Srinivas Marcus DO [address] [phone] PCP - General Family Medicine 06/18/19 documented as of this encounter
--- OUTSIDE RECORDS SUMMARY | 2024-08-06 00:47 | External Medical Summary | Summary of Care ---
Author Name Unknown Organization [facility] Address [address] [facility] [place] [address] Phone [phone] Care Team Providers Care Tier In Name Role Phone Luanne Marcusr Joycelyn Primary Care Provider Reason for Visit * Reason Comments Return Visit Encounter Details Date Type Department Care Team (Late st Contact Info) Description 07/08/2024 4:30 PM EST Office Visit Gynecology/Obstetric s [facility] Valladares [address] [place] [address] Malathi Tyson PA-C [address] [place] [address] Supervision of other normal , antepartum* Allergies No known active allergiesdocumented as of this encounter (statuses as of 07/08/2024) Medications 19 29-1 MG Oral Tablet Chewable Take by mouth. Active documented as of this encounter (statuses as of 07/08/2024) Active Problems Problem Noted Date Diagnosed Date Supervision of other normal , antepartu m 02/08/2024 Sore throat (viral) 10/12/2022 Upper respiratory tract infection 10/12/2022 Acute tonsillitis 12/31/2009 Idiopathic scoliosis 08/01/2007 VARICELLA UNCOMPLICATED - age 3 Estimated Date of Delivery Comme nts Yes 08/04/2024 Based on last me nstrual period of 10/29/2023 (Exact Date) documented as of this encounter (statuses as of 07/08/2024) Resolved Problems Problem Noted Date Diagnosed Date [...] as of this encounter (statuses as of 07/08/2024) Immunizations Name Administration Dates Next Due Meningococcal [...] money to get more. Patient declined 04/2024 [place] Depression Scale Answer Date Recorded [place] Depression Scale Total 1 06/27/2024 The thought [...] Sign Reading Time Taken Comments Blood Pressure 112/72 07/08/2024 4:40 PM EST Pulse - - Temperature - - Respiratory Rate - - Oxygen Saturation - - Inhaled Oxygen Concentration - - Weight - - Height 154.9 cm (5' 1") 07/08/2024 4:40 PM EST Body Mass Index - - documented in this encounter Progress Notes * Malathi Tyson PA-C - 07/08/2024 5:13 PM EST 36w1d Continued issues with varicose veins R>L. Has comfort measures. Had negative venous duplex of legs -- right leg. No superficial or deep vein thrombosis. Feels leg tight, better when she rubs it. No red or hardened areas concerning for thrombosis of both lower extremities today. Given UTD patientinformation on varicose vein management. Works at [employer]. Worse after shift. Stands most of shift. Wears her compression stockings. Provided her with routine ob recommendations to discuss further with employer regarding breaks. GBS negative through L&D a few weeks ago when seen for spotting. It was negative, prior to 36 weeks. Pt agreeable to repeat today -- collected. Mainframe Applications Developer Documentation Provider requested clinical psychologist private practice. Name of clinical psychologist private practice: Miracle Khanna RN Denies VB, LOF, regular contractions. Baby is active. Labor precautions and ob numbers provided. RTC in 1 week Malathi Tyson PA-C documented in this encounter Nursing Notes * Miracle Khanna RN - 07/08/2024 4:42 PM EST Patient here for DAVID visit 36w1d + continued leg pain No bleeding/leaking today seen at L and D on 06/29 for spotting + FM documented in this encounter Plan of Treatment Pending Results Name Type Priority Associated Diagnoses Date /Time GROUP B STREP CULTURE/PCR Lab Routine Supervision of other normal , antepartum 07/08/2024 5:12 PM EST Scheduled Orders Name Type Priority Associated Diagnoses Orde r Schedule GROUP B STREP CULTURE/PCR Lab Routine Supervision of other normal , antepartum Expected: 07/08/2024, Expires: 07/08/2025 Health Maintenance Due Date Last Done Comments DTap/Tdap Vaccines (7 - Td or Tdap) 02/13/2019 02/13/2009, 03/05/1998, 08/31/1994, Additional history exists Depression Screening 10/24/2020 10/25/2019 COVID-19 Vaccine (1 - 2023- season) 2024 Influenza Vaccine (FLU [...] documented as of this encounter Care Teams Tier In Relationship Specialty Start Date End Date Srinivas Marcus DO [address] [address] PCP - General Family Medicine 06/18/19 documented as of this encounter
--- OUTSIDE RECORDS SUMMARY | 2024-08-06 00:47 | External Medical Summary ---
Author Name Unknown Address Unknown Organization [id number]:[facility] - [facility] [address] [place] [id number] Laboratory Report Ordering Provider Test Date Status MAT MASON 07/08/2024 17:12:25 Final Observation Date Value Abnormality Reference (Units ) Status Streptococcus agalactiae DNA [Presence] in Specimen by BEENA with probe detection 07/08/2024 17:12:25 Negative Negative Final No Group B Streptococcus det ected by culture-enhanced PCR (amplified probe). GBS GBSCT - [facility] 07/08/2024 17:12:25 0.0 Final GBS SPCCT - [facility] 07/08/2024 17:12:25 32.0 Final Performing Location [facility] - [address] [place] [address]
[2024-08-06] MEDS: BENZOCAINE 20% SPRY 85 APPLN/85 GM CAN EXT PRN (03:54)
[2024-08-06 06:22] LABS: Hematocrit (blood only) 32.8 % (37.0-47.0); Hemoglobin 11.6 g/dl (12.0-16.0); Mean Corpuscular Hemoglobin 31.7 pg (25.0-34.0); Mean Corpuscular Hgb Conc 35.4 g/dL (32.0-36.0); Mean Corpuscular Volume 89.6 fL (80.0-100.0); Mean Platelet Volume 10.5 fL (9.4-12.4); Platelet Count 172 K/uL (130-400); RDW Coefficient of Variation 11.9 % (11.5-14.5); RDW Standard Deviation 38.2 fL (36.4-46.3); Red Blood Count 3.66 M/uL (4.20-5.40); White Blood Count 13.25 K/ul (4.8-10.8)
[2024-08-06] MEDS: IBUPROFEN 600 MG TAB PO PRN (06:30)
[2024-08-06] MEDS: DOCUSATE SODIUM 100 MG CAP PO SCH (08:00)
[2024-08-06] MEDS: FERROUS SULFATE 325 MG TAB PO SCH (08:00)
[2024-08-06] MEDS: PRENATAL VITAMIN 1 TAB PO SCH (08:00)
--- NOTE | 2024-08-06 08:17 | Anesthesia Procedure Note ---
Date of Service August 06, 2024 Anesthesia Post Epidural Note Vital Signs Vital Signs: Temp Pulse Resp BP Pulse Ox O2 Del Method 36.7 C 71 18 116/77 97 Room Air 08/06/24 03:10 08/06/24 03:10 08/06/24 03:10 08/06/24 03:10 08/06/24 03:10 08/06/24 03:10 Pain Intensity Abdomen: Pain Intensity: 0 Notes Mental Status: alert / awake / arousable and participated in evaluation Patient Amnestic to Procedure: No Nausea / Vomiting: adequately controlled Pain: adequately controlled Airway Patency, RR, SpO2: stable & adequate BP & HR: stable & adequate Hydration State: stable & adequate Neuraxial Anesthesia: was administered and sensory block resolved Anesthetic Complications: no major complications apparent and Pt Satisfied with anesthetic care Epidural: Removed without complications and With tip intact
--- NOTE | 2024-08-06 08:52 | Obstetrical Progress Note ---
Date of Service August 06, 2024 Assessment & Plan Admission and Anticipated Discharge Date Admission Date: August 05, 2024 Subjective abdomen soft and non tender ambulating well no calf tenderness vaginal bleeding scant hgb 11.6 Results & Data Vital Signs (Past 12 Hours) Vital Signs Temp Pulse Pulse Resp BP BP Pulse Ox 08/06/24 03:10 36.7 C 71 18 116/77 97 08/06/24 01:35 37.1 C 16 08/06/24 01:35 78 104/71 08/06/24 01:20 75 111/78 08/06/24 01:05 73 117/77 08/06/24 00:50 76 123/86 08/06/24 00:35 72 124/82 08/06/24 00:20 70 123/77 08/06/24 00:05 74 130/84 08/05/24 23:50 67 125/78 08/05/24 23:35 37.1 C 16 08/05/24 23:35 78 132/78 08/05/24 23:27 80 99 08/05/24 23:24 16 08/05/24 23:24 16 08/05/24 23:22 93 H 100 08/05/24 23:17 86 100 08/05/24 23:12 73 100 08/05/24 23:07 73 100 08/05/24 23:05 72 120/80 08/05/24 23:02 70 100 08/05/24 23:00 16 08/05/24 23:00 16 08/05/24 22:57 77 100 08/05/24 22:52 70 99 08/05/24 22:51 72 109/66 08/05/24 22:47 72 100 08/05/24 22:42 73 100 08/05/24 22:37 68 100 08/05/24 22:35 73 110/67 08/05/24 22:32 67 100 08/05/24 22:30 16 08/05/24 22:30 16 08/05/24 22:27 70 100 08/05/24 22:22 81 100 08/05/24 22:20 73 105/60 91 08/05/24 22:17 69 100 08/05/24 22:12 78 100 08/05/24 22:07 82 100 08/05/24 22:06 80 112/62 08/05/24 22:02 75 100 08/05/24 22:00 16 08/05/24 22:00 16 08/05/24 21:59 37.1 C 08/05/24 21:57 78 100 08/05/24 21:52 73 100 08/05/24 21:51 73 117/73 08/05/24 21:47 83 100 08/05/24 21:42 75 100 08/05/24 21:37 71 100 08/05/24 21:36 72 112/66 08/05/24 21:32 74 100 08/05/24 21:27 74 100 08/05/24 21:22 84 100 08/05/24 21:20 75 111/66 08/05/24 21:17 73 100 08/05/24 21:15 16 08/05/24 21:15 16 08/05/24 21:12 74 100 08/05/24 21:07 73 100 08/05/24 21:05 76 118/81 08/05/24 21:02 90 100 08/05/24 21:00 16 08/05/24 21:00 16 08/05/24 20:57 88 100 08/05/24 20:52 81 100 O2 Del Method 08/06/24 03:10 Room Air 08/06/24 01:35 08/06/24 01:35 08/06/24 01:20 08/06/24 01:05 08/06/24 00:50 08/06/24 00:35 08/06/24 00:20 08/06/24 00:05 08/05/24 23:50 08/05/24 23:35 08/05/24 23:35 08/05/24 23:27 08/05/24 23:24 08/05/24 23:24 08/05/24 23:22 08/05/24 23:17 08/05/24 23:12 08/05/24 23:07 08/05/24 23:05 08/05/24 23:02 08/05/24 23:00 08/05/24 23:00 08/05/24 22:57 08/05/24 22:52 08/05/24 22:51 08/05/24 22:47 08/05/24 22:42 08/05/24 22:37 08/05/24 22:35 08/05/24 22:32 08/05/24 22:30 08/05/24 22:30 08/05/24 22:27 08/05/24 22:22 08/05/24 22:20 08/05/24 22:17 08/05/24 22:12 08/05/24 22:07 08/05/24 22:06 08/05/24 22:02 08/05/24 22:00 08/05/24 22:00 08/05/24 21:59 08/05/24 21:57 08/05/24 21:52 08/05/24 21:51 08/05/24 21:47 08/05/24 21:42 08/05/24 21:37 08/05/24 21:36 08/05/24 21:32 08/05/24 21:27 08/05/24 21:22 08/05/24 21:20 08/05/24 21:17 08/05/24 21:15 08/05/24 21:15 08/05/24 21:12 08/05/24 21:07 08/05/24 21:05 08/05/24 21:02 08/05/24 21:00 08/05/24 21:00 08/05/24 20:57 08/05/24 20:52
[2024-08-06] MEDS ORDERED: PRENATAL VITAMIN 1 TAB PO SCH (09:00)
[2024-08-06] MEDS: bisacodyL 5 MG TABEC PO SCH (21:47)
--- NOTE | 2024-08-06 23:56 | Ultrasound Report ---
Exam(s): US VENOUS BILATERAL LOWER EXTREMITIES EXAM: US Duplex Bilateral Lower Extremities Veins CLINICAL HISTORY: Reason for exam: right upper posterior leg pain and redness. TECHNIQUE: Real-time duplex ultrasound scan of the bilateral lower extremity veins integrating B-mode two-dimensional vascular structure, Doppler spectral analysis, color flow Doppler imaging and compression. COMPARISON: No relevant prior studies available. FINDINGS: Right deep veins: Unremarkable. No DVT in the right common femoral, femoral, proximal deep femoral or popliteal veins. The veins demonstrate normal color flow, are normally compressible, with normal phasic flow and/or augmentation response. Right superficial veins: Thrombosed varicosity within the proximal calf and distal thigh. Left deep veins: Unremarkable. No DVT in the left common femoral, femoral, proximal deep femoral or popliteal veins. The veins demonstrate normal color flow, are normally compressible, with normal phasic flow and/or augmentation response. Left superficial veins: See above. Soft tissues: 3.3 x 3.7 x 10 cm right popliteal fossa Villavicencio's cyst. IMPRESSION: Thrombosed varicosity within the proximal calf and distal thigh No DVT Electronically signed by: Nirav Sung MD 08/06/24 23:55 PM
[2024-08-07 06:08] LABS: Hematocrit (blood only) 34.2 % (37.0-47.0)
--- NOTE | 2024-08-07 08:14 | Obstetrical Progress Note ---
Date of Service August 07, 2024 Assessment & Plan Admission and Anticipated Discharge Date Admission Date: August 05, 2024 Subjective Patient is seen and examined. She feels well, no complaints. Ambulating without dizziness Voiding without difficulty Tolerating regular diet with out N&V Bleeding is minimal No fever/ chills/ CP/ SOB/ N&V/ Leg pain Bottle feeding without problems Vital Signs Temp Pulse Resp BP Pulse Ox O2 Del Method 08/07/24 02:15 36.5 C 59 L 18 136/88 99 Room Air Lab Results 08/05/24 08/05/24 08/06/24 Range/Units 18:06 Unknown 05:44 WBC 10.52 13.25 H (4.8-10.8) K/ul RBC 4.20 3.66 L (4.20-5.40) M/uL Hgb 13.3 11.6 L (12.0-16.0) g/dl Hct 37.7 32.8 L (37.0-47.0) % MCV 89.8 89.6 (80.0-100.0) fL MCH 31.7 31.7 (25.0-34.0) pg MCHC 35.3 35.4 (32.0-36.0) g/dL RDW Std Deviation 39.0 38.2 (36.4-46.3) fL RDW Coeff of [place] 12.0 11.9 (11.5-14.5) % Plt Count 200 172 (130-400) K/uL MPV 10.4 10.5 (9.4-12.4) fL Total Bilirubin 0.3 (0.2-1.0) mg/dl Direct Bilirubin 0.0 (0-0.2) mg/dl AST 16 (13-39) U/L ALT 13 (7-52) U/L Alkaline Phosphatase 180 H (34-104) U/L Total Protein 6.9 (6.0-8.3) gm/dl Albumin 3.5 (3.4-5.0) gm/dl Ur Random Creatinine 28.2 mg/dl U Random Total Protein < 4.0 (0-11.9) mg/dl Protein/Creatinin Ratio TNP Treponema pallidum Ab Negative (Negative) 08/07/24 Range/Units 05:47 WBC (4.8-10.8) K/ul RBC (4.20-5.40) M/uL Hgb 12.0 (12.0-16.0) g/dl Hct 34.2 L (37.0-47.0) % MCV (80.0-100.0) fL MCH (25.0-34.0) pg MCHC (32.0-36.0) g/dL RDW Std Deviation (36.4-46.3) fL RDW Coeff of [place] (11.5-14.5) % Plt Count (130-400) K/uL MPV (9.4-12.4) fL Total Bilirubin (0.2-1.0) mg/dl Direct Bilirubin (0-0.2) mg/dl AST (13-39) U/L ALT (7-52) U/L Alkaline Phosphatase (34-104) U/L Total Protein (6.0-8.3) gm/dl Albumin (3.4-5.0) gm/dl Ur Random Creatinine mg/dl U Random Total Protein (0-11.9) mg/dl Protein/Creatinin Ratio Treponema pallidum Ab (Negative) PE: General: Alert, orientedx3, NAD Abd: soft, NT, fundus firm, below Umbilicus Perineum intact, Lochia rubra minimal Ext; NT, no edema AP: 33 yo s/p , ppd# 2 VSS Afebrile doing well Continue routine care All questions were answered D/C home , f/u in office Results & Data Vital Signs (Past 12 Hours) Vital Signs Temp Pulse Resp BP Pulse Ox O2 Del Method 08/07/24 02:15 36.5 C 59 L 18 136/88 99 Room Air
[2024-08-07 08:16] VITALS: BP 120/78; PULSE 66; RESP 20; TEMP 98.1; O2SAT 97
== END 2024-08-07 14:35 | disposition home health service (06) | DRG 807 ==
LOC: OPB 16:25 → 4S1 16:26 → 4E2 08-06 02:12